=== PATIENT | female | born 1985 | race Caucasian/White ===

== ENCOUNTER 2018-12-06 19:32 | Emergency (ER) | payer MEDICARE, OTHER ==
[2018-12-06 21:10] LABS: ADD MAN DIFF? NO
[2018-12-06 21:13] LABS: BASOPHILS % 0.5 % (0.0-2.0); EOSINOPHILS # 0.1 10^3/ul (0.0-0.5); EOSINOPHILS % 1.2 % (0.0-7.0); HEMATOCRIT 36.2 % (37.0-47.0); HEMOGLOBIN 11.1 g/dl (12.0-16.0); LYMPHOCYTES # 1.7 10^3/ul (0.8-2.9); LYMPHOCYTES % 28.8 % (15.0-51.0); MEAN CORPUSCULAR HEMOGLOBIN 31.9 pg (29.0-33.0); MEAN CORPUSCULAR HGB CONC 30.7 g/dl (32.0-37.0); MEAN PLATELET VOLUME 10.9 fl (7.4-10.4); MONOCYTE # 0.6 10^3/ul (0.3-0.9); MONOCYTES % 10.3 % (0.0-11.0); NEUTROPHIL # 3.5 10^3/ul (1.6-7.5); PLATELET COUNT 212 10^3/UL (140-415); RED BLOOD COUNT 3.48 10^6/ul (4.20-5.40); RED CELL DISTRIBUTION WIDTH 13.1 % (11.5-14.5)
[2018-12-06 21:13] LABS: WHITE BLOOD COUNT 5.9 10^3/ul (4.8-10.8)
[2018-12-06 21:31] LABS: ANION GAP 16 (5-13); BLOOD UREA NITROGEN 88 mg/dl (7-20); CALCIUM 8.7 mg/dl (8.4-10.2); CARBON DIOXIDE 25 mmol/L (21-31); CHLORIDE 103 mmol/L (97-110); GLUCOSE 98 mg/dl (70-220); POTASSIUM 4.7 mmol/L (3.5-5.1); SODIUM 144 mmol/L (135-144)
[2018-12-06 21:37] LABS: Estimated GFR 4 mL/min (>60)
[2018-12-06 21:38] LABS: CREATININE 12.03 mg/dl (0.44-1.00)
[2018-12-06 21:41] LABS: TROPONIN-I 0.014 ng/ml (0.000-0.120)
[2018-12-06] MEDS: DIPHENHYDRAMINE 50 MG INJ IV (21:46)
== END 2018-12-06 22:35 | disposition home or self-care (01) ==
LOC: E/R 19:32
DX: R52 Pain, unspecified (principal); I10 Essential (primary) hypertension; R63.1 Polydipsia
CPT/HCPCS: 36415; 71045; 80048; 82962; 84484; 85025; 93005; 96374; 99285-25

== ENCOUNTER 2019-02-01 12:41 | Emergency (ER) | payer MEDICARE, OTHER | END 2019-02-01 13:44 | disposition home or self-care (01) | LOC: E/R 12:41 | DX: S70.362A Insect bite (nonvenomous), left thigh, initial encounter (principal); I10 Essential (primary) hypertension; S20.469A Insect bite (nonvenomous) of unspecified back wall of thorax, initial encounter; W57.XXXA Bitten or stung by nonvenomous insect and other nonvenomous arthropods, initial encounter; Y92.9 Unspecified place or not applicable | CPT/HCPCS: 99283 ==